=== PATIENT | female | born 1960 | race Caucasian/White ===

== ENCOUNTER 2017-01-16 17:56 | Emergency (ER) | payer OTHER ==
[~2017-01-16] VITALS: Ht 160 cm; Wt 49.0 kg
[~2017-01-16 17:56] MED LIST: ZOFRAN ODT4 M1 SL
--- NOTE | 2017-01-16 20:43 | ED GENERAL ADULT ---
History of Present Illness General Chief Complaint: General Adult Stated Complaint: PT THINKS SHE NEEDS DEHYDRATED AND NEEDS IV Source: patient Exam Limitations: no limitations Vital Signs & Intake/Output Vital Signs & Intake/Output Vital Signs Date Time Temp Pulse Resp B/P B/P Pulse O2 O2 Flow FiO2 Mean Ox Delivery Rate 01/16 2131 96.6 98 16 111/66 98 Room Air 01/16 2029 Room Air 01/163 97.8 71 18 123/83 95 Room Air Allergies Coded Allergies: No Known Allergies (06/03/16) Reconcile Medications Ondansetron (Zofran Odt) 4 MG TAB.RAPDIS 1 TAB SL TID PRN nausea Triage Note: C/O NAUSEATED WITH VOMITING X 8 HOURS. DENIES PAIN. Triage Nurses Notes Reviewed? yes Onset: Gradual Duration: day(s): (1) Timing: remote history Injury Environment: home Severity: moderate Severity Numbers: 7 No Modifying Factors: none HPI: Patient is a 56-year-old female, history of osteopenia presenting to the emergency department with chief complaint of generalized malaise, dental throbbing headache, nausea and vomiting started this morning. She called her primary care physician and they prescribed her antinausea medication which didn' t seem to help. She still vomited afterwards. Denies diarrhea or abdominal pain. No body aches. She does report that she does do hot yoga often, the last time was last night. Unsure if she hydrated adequately afterwards. Denies any urinary frequency or urgency or dysuria. She called her primary care physician back after she was unable to tolerate by mouth after the Zofran and they recommended she come to the emergency department for evaluation of dehydration and IV hydration. Denies any chest pain palpitations or shortness of breath. No recent illness or fevers. (SAMANTHA ROSADO) Past History Travel History Traveled to [place] past 21 day No Medical History Any Pertinent Medical History? see below for history Neurological: NONE EENT: NONE Cardiovascular: NONE Respiratory: NONE Gastrointestinal: NONE Hepatic: NONE Renal: NONE Musculoskeletal: NONE Psychiatric: NONE Endocrine: NONE Blood Disorders: NONE Cancer(s): NONE Surgical History Surgical History: none Psychosocial History What is your primary language Hungarian Tobacco Use: Never used ETOH Use: denies use Family History Hx Contributory? No (SAMANTHA ROSADO) Review of Systems Review of Systems Constitutional: Reports: malaise. Comments Review of systems: See HPI, All other systems negative. Constitutional, no chills fever or weight loss HEENT: No visual changes no sore throat no congestion Cardiovascular: No chest pain ,palpitation , orthopnea or ankle swelling Skin, no jaundice no rashes Respiratory: No dyspnea cough sputum or hemoptysis GI: No diarrhea : No dysuria No hematuria Muscle skeletal: no back pain, no neck pain, Neurologic: No numbness no confusion Psych: No stress anxiety or depression,. Heme/endocrine: No bruising no bleeding no polyuria or polydipsia Immunology: No splenectomy or history of AIDS (SAMANTHA ROSADO) Physical Exam Physical Exam General Appearance: well developed/nourished, no apparent distress, alert, awake , comfortable Comments: Well-developed well-nourished person in no acute distress HEENT: Pupils equally round and reactive to light and accommodation. Nose is atraumatic. Pharynx normal. No swelling or edema. Slightly dry lips. Neck: Supple, no lymphadenopathy, normal range of motion without pain or tenderness Back: Nontender, no CVA tenderness. Cardiovascular: Regular rate and rhythms no murmurs rubs or gallops, normal JVP Respiratory: Chest nontender. No respiratory distress.breath sounds clear to auscultation bilaterally Abdomen: Soft, nontender nondistended, no appreciable organomegaly. Normal bowel sounds. No ascites. No rebound or guarding. No right lower quadrant pain to palpation. Extremity: No edema Neuro: Alert oriented x3, motor sensory normal, cranial nerves II through XII grossly intact. Skin: Slight tenting noted on the dorsum of both hands. No tenting noted anywhere else. No appreciable rash on exposed skin, skin is warm and dry. Psych: Mood and affect is normal, memory and judgment is normal. Core Measures ACS in differential dx? No CVA/TIA Diagnosis: No Severe Sepsis Present: No Septic Shock Present: No (SAMANTHA ROSADO) Progress Differential Diagnoses I considered the following diagnoses in my evaluation of the patient: Dehydration, rhabdomyolysis, acute kidney injury, electrolyte abnormality Plan of Care: Orders Procedure Date/time Status URINALYSIS 01/16 2034 Complete COMPREHENSIVE METABOLIC PANEL 01/16 2034 Complete CREATINE PHOSPHOKINASE 01/16 2034 Complete CBC WITHOUT DIFFERENTIAL 01/16 2034 Complete Laboratory Tests 01/16/172225: Urinalysis LIGHT H, Urine Color YEL, Urine Clarity CLEAR, Urine pH 7.5, Ur Specific [place] 1.015, Urine Protein TRACE H, Urine Ketones 15 H, Urine Nitrite NEG, Urine Bilirubin NEG, Urine Urobilinogen 0.2, Ur Leukocyte Esterase NEG, Ur Microscopic SEDIMENT EXAMINED, Urine RBC RARE, Ur Epithelial Cells FEW, Urine Hemoglobin TRACE-INTACT, Urine Glucose NEG 01/16/172039: Anion Gap 12, Estimated GFR > 60, BUN/Creatinine Ratio 34.0 H, Glucose 122 H, Calcium 9.3, Total Bilirubin 1.0, AST 25, ALT 38, Alkaline Phosphatase 57, Creatine Kinase 66, Total Protein 7.5, Albumin 4.4, Globulin 3.1, Albumin/ Globulin Ratio 1.4, CBC w Diff NO MAN DIFF REQ, RBC 4.39, MCV 93.8, MCH 31.8 H, RDW 13.7, MPV 8.3, Gran % 82.3 H, Lymphocytes % 15.1 L, Monocytes % 2.0, Eosinophils % 0.2, Basophils % 0.4, Absolute Granulocytes 3.6, Absolute Lymphocytes 0.7 L, Absolute Monocytes 0.1 L, Absolute Eosinophils 0, Absolute Basophils 0, PUBS MCHC 33.9 Initial ED EKG: none Comments: Patient medicated with IV fluids, Zofran and Toradol on arrival. No abdominal pain on exam. We will assess for dehydration with CBC and CMP. Patient informed of all lab work results. Feels much better after 1 L normal saline. Patient educated on increasing fluids. Tolerating by mouth without nausea or vomiting. She'll return for worsening symptoms or concerns. She'll continue taking Zofran previously prescribed. CKs negative, no signs of rhabdo. Advised to avoid hot yoga. (SAMANTHA ROSADO) Departure Departure Time of Disposition: 2225 Disposition: HOME OR SELF CARE Condition: Stable Clinical Impression Primary Impression: Dehydration Referrals: MADIE DANIELLE,DAVID Larose (PCP/Family) Additional Instructions: Follow-up with her primary care physician call to make an appointment. Increase fluids over the next several days. Avoid hot yoga. Return for worsening symptoms or concerns. Departure Forms: Customer Survey D/C INS-APPENDICITIS EXCLUSION General Discharge Information (SAMANTHA ROSADO) PA/MACHINE PACKAGING TECHNICIAN Co-Sign Statement Statement: ED Attending supervision documentation- [] I saw and evaluated the patient. I have also reviewed all the pertinent lab results and diagnostic results. I agree with the findings and the plan of care as documented in the PA's/MACHINE PACKAGING TECHNICIAN's documentation. [X] I have reviewed the ED Record and agree with the PA's/MACHINE PACKAGING TECHNICIAN's documentation. [] Additions or exceptions (if any) to the PAs/MACHINE PACKAGING TECHNICIAN's note and plan are summarized below: [] (FILIPPO DANIELLE,RONAN) Critical Care Note Critical Care Note Critical Care Time: non-applicable (SAMANTHA ROSADO)
[2017-01-16 20:56] LABS: ABSOLUTE BASOPHIL COUNT 0 /CUMM (0.0-0.2); ABSOLUTE EOSINOPHIL COUNT 0 /CUMM (0.0-0.7); ABSOLUTE GRANULOCYTE CT 3.6 /CUMM (1.4-6.5); ABSOLUTE LYMPH COUNT 0.7 /CUMM (1.2-3.4); ABSOLUTE MONOCYTE COUNT 0.1 /CUMM (0.10-0.60); BASOPHIL % 0.4 % (0.0-2.0); EOSINOPHIL % 0.2 % (0-5); GRANULOCYTE % 82.3 % (42.2-75.2); HEMATOCRIT 41.2 % (37-47); MEAN CORPUSCULAR HGB 31.8 PG (27.0-31.0); MEAN CORPUSCULAR HGB CONC 33.9 G/DL (33.0-37.0); MEAN CORPUSCULAR VOLUME 93.8 FL (81.0-99.0); MEAN PLATELET VOLUME 8.3 FL (7.4-10.4); PLATELET COUNT 256 /CUMM (130-400); RBC DISTRIBUTION WIDTH 13.7 % (11.5-14.5); RED BLOOD CELL CT 4.39 /CUMM (4.20-5.40); WHITE BLOOD CELL COUNT 4.4 /CUMM (4.8-10.8)
[2017-01-16 21:31] VITALS: BP 111/66
== END 2017-01-16 22:40 ==
LOC: ERH 17:56
PROVIDERS: Physician Assistant
DX: E86.0 Dehydration (principal)
CPT/HCPCS: 81001; 96374; 96375; J1885; J2405